=== PATIENT | female | born 1990 ===

== ENCOUNTER 2018-02-17 10:35 | Emergency (ER) | payer MEDICAID ==
[2018-02-17 10:37] VITALS: BMI 23.3
[2018-02-17 10:41] VITALS: BP 109/74; PULSE 68; RESP 16; TEMP 98.5; O2SAT 99
--- NOTE | 2018-02-17 10:52 | C.PDOC ---
History Of Present Illness 27-year-old female, presents to the emergency department with complaints of pain to right lower wisdom tooth ongoing for the past few days. Patient states she went to see her dentist, but the office moved. She denies any nausea/ vomiting, fever. No other complaints at this time. Time Seen by Provider: 02/17/18 10:42 Chief Complaint (Nursing): Dental Pain History Per: Patient History/Exam Limitations: no limitations Onset/Duration Of Symptoms: Days Current Symptoms Are (Timing): Still Present Past Medical History Reviewed: Historical Data, Nursing Documentation, Vital Signs Vital Signs: Last Vital Signs Temp 98.5 F 02/17/18 10:37 Pulse 68 02/17/18 10:37 Resp 16 02/17/18 10:37 BP 109/74 02/17/18 10:37 Pulse Ox 99 02/17/18 13:08 Family History: States: No Known Family Hx - Social History Hx Alcohol Use: No Hx Substance Use: No - Immunization History Hx Tetanus Toxoid Vaccination: No Hx Influenza Vaccination: No Hx Pneumococcal Vaccination: No Review Of Systems Constitutional: Negative for: Fever ENT: Positive for: Other (teet pain) Respiratory: Negative for: Cough Gastrointestinal: Negative for: Nausea, Vomiting Physical Exam - Physical Exam Appears: Non-toxic, No Acute Distress Skin: Normal Color, Warm, Dry, No Rash Head: Atraumatic, Normacephalic Eye(s): bilateral: Normal Inspection Nose: Normal Oral Mucosa: Moist Lips: Normal Appearing Teeth: Other (Right lower wisdom tooth, impacted, +gingival swelling. No abscess , no blood) Neck: Normal ROM Cardiovascular: Rhythm Regular Respiratory: Normal Breath Sounds Extremity: Bilateral: Atraumatic, Normal ROM Neurological/Psych: Oriented x3, Normal Speech ED Course And Treatment O2 Sat by Pulse Oximetry: 99 Pulse Ox Interpretation: Normal (RA) Medical Decision Making Medical Decision Making: Impression: Tooth ache Plan: * Penicillin * Tylenol/Codeine Reassess: Patient has no fever or signs of abscess. Recommend follow up with dentist in timely manner Disposition Counseled Patient/Family Regarding: Diagnosis, Need For Followup, Rx Given - Disposition Referrals: Sascha Franks [Staff Provider] - Disposition: HOME/ ROUTINE Disposition Time: 10:51 Condition: STABLE Additional Instructions: Please follow up with Dentist as soon as possible Prescriptions: Acetaminophen with Codeine [Tylenol with Codeine No. 3 300 mg-30 mg] 1 tab PO Q8 PRN #20 tab PRN Reason: Pain, Moderate (4-7) Penicillin VK [Penicillin VK Tab] 1 tab PO BID #20 tab Instructions: Impacted Tooth (DC) Forms: [facility] ([facility]) - POA Present On Arrival: None - Clinical Impression Clinical Impression: Tooth impaction - Scribe Statement The provider has reviewed the documentation as recorded by the Scribe (Haris Urbina) All medical record entries made by the Scribe were at my direction and personally dictated by me. I have reviewed the chart and agree that the record accurately reflects my personal performance of the history, physical exam, medical decision making, and the department course for this patient. I have also personally directed, reviewed, and agree with the discharge instructions and disposition.
[2018-02-17] MEDS ORDERED: Acetaminophen-Codeine 300/30 mg Tab PO STA (10:57)
[2018-02-17] MEDS ORDERED: Acetaminophen-Codeine 300/30 mg Tab PO ONE (11:06)
== END 2018-02-17 11:35 | disposition home or self-care (01) ==
LOC: C.ER 10:35
DX: K01.1 Impacted teeth (principal)